=== PATIENT | female | born 1960 | race Two or more races ===

== ENCOUNTER 2024-06-23 13:13 | Outpatient (RCR) | payer MEDICAID, SELFPAY ==
--- NOTE | 2024-06-23 13:34 | PTNOTE_ITS ---
PT OP Initial Eval Patient Information Outpatient Physical Therapy Treatment Date: 06/23/24 Visit Reasons: Pain in Unspecified joint Medical Diagnosis: M25.50 Treatment Dx #1: LBP Treatment Dx #2: B knee pain Start of Care: 06/23/24 Date of Onset: 5 yrs ago Smoking Status Smoking Status: Never smoker Initial Assessment Subjective: Pt is 63 yr old djiboutian speaking female who reports multiple sites of pain, knees, L/S, ankles, neck. She had blood work done in [place] this week and is waiting for results. These pains limits standing tolerance >5 mins, she feels burning in the knees and ankles when she walks. PMH: L4-5 disk bulge, hysterectomy 1995 Imaging: none available Pt goal: to get rid of the pain to improve QOL Objective: ?Trunk ArOM: ? B SB 50% of normal with pain ? Extension: 20% with pain around L4-5, L5-S1 ? Flexion: 18 from floor with LBP ? B rotation: 60% with pain ? R SLR ROM: 45 deg. L SLR: 50 deg with posterior knee neural tension ? TTP: moderate paraspinals L5-S1 B knee ArOM: Flexion: full Extension: full Stephanie's: positive Varus/valgus: positive B knees significant gapping ? Assessment: ? Pt presents with trunk flexion sensitivity and overlying myofascial pain ? and TTP around L4-L5 consistent with lower lumbar disc bulge(s) with radiculopathy. Both knees have significant varus/valgus instability and would benefit from knee braces for support. Pt doesn't tolerate trunk extension due to pain which may limit progress with LBP goals. Pt requires skilled therapy in order to decrease ? pain and improve sitting/standing tolerance and has poor/fair rehab potential. 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 1. Ind with HEP ? 2. Improved sitting/standing tolerance to 20 minutes with <=4/10 LBP ? 3. Decreased lower paraspinal TTP from mod to min 4. Improved HH chore tolerance to at least 20 minutes with <=3/10 LBP and no ?increase in LE ssx Treatment Plan ? 1. Manual therapy ? 2. Therex ? 3. Modalities as indicated, moist heat, ice, estim Frequency and Duration: 1-2x a week for 8 visits Certification Dates: 06/23/24 to 09/23/24 Procedure Charges OP PT Eval Mod Complex 30 minutes: Yes
== END 2024-07-12 23:59 | disposition home or self-care (01) ==
LOC: CPTX 13:13
PROVIDERS: PCP Physician Assistant; Referring Provider Physician Assistant; Visit Provider Physician Assistant
DX: M25.562 Pain in left knee (principal); M25.561 Pain in right knee; M54.50 Low back pain, unspecified; M25.572 Pain in left ankle and joints of left foot; M25.571 Pain in right ankle and joints of right foot; M54.2 Cervicalgia; M25.362 Other instability, left knee; M25.361 Other instability, right knee
CPT/HCPCS: 97162

== ENCOUNTER → 2024-06-23 | Outpatient (CLI) | payer MEDICAID, SELFPAY ==
--- NOTE | 2024-06-23 14:47 | XR_ITS ---
Examination: Bilateral knees 2 views Right lateral knee left lateral knee 2 views Bilateral axial knees single view Technique: Bilateral AP knees standing single view, bilateral PA knees standing lateral view Right lateral knee left lateral knee 2 views Bilateral axial knees single view total 5 views Exam date and time: 2024 1419 hrs. Indications: Bilateral knee pain several months. Findings: Mild to moderate bilateral tricompartment osteoarthritis, most severe medial joint spaces No fracture or dislocation Impression: Mild to moderate bilateral tricompartment osteoarthritis
--- NOTE | 2024-06-23 14:47 | XR_ITS ---
Examination: Lumbar spine 7 views Technique: AP, lateral, standing lateral flexion standing lateral extension OLIVERA, YAKUT, lower lumbar spine total 7 views Exam date and time: June 23 2024 1434 hrs. Low back pain several months. Findings: Lumbar dextroscoliosis 12 degrees No lumbar fracture Diffuse [id number] lumbar disc bulge most prominent at L5-S1 Significantly decreased range of motion between flexion and extension Impression: [id number] lumbar degenerative disc disease, most probably L5-S1
--- NOTE | 2024-06-23 14:47 | XR_ITS ---
EXAMINATION: Cervical spine, 7 views Technique: Cervical spine AP, AP odontoid, lateral, bilateral obliques,, standing lateral flexion standing lateral extension Exam date and time: June 23, 2024 1402 hrs. Indications: Neck pain beginning several months ago. Findings: Satisfactory alignment cervical vertebral bodies No cervical fracture. Moderate degenerative disc disease C5-C6 with moderate bilateral neural foraminal stenosis Adequate range of motion between flexion and extension Impression: Moderate degenerative disc disease C5-C6
--- NOTE | 2024-06-23 14:47 | XR_ITS ---
Examination: Bilateral ankles 3 views Technique one AP lateral right ankle single view, right and left ankles standing 2 views total 3 views Exam date and time: June 23, 2024 1414 hrs. Indications: Bilateral ankle pain beginning several months ago. Findings: Bilateral moderate narrowing tibiotalar joints No fractures or dislocations Impression: Moderate bilateral narrowing tibiotalar joints
== END | disposition home or self-care (01) ==
PROVIDERS: PCP Internal Medicine Rheumatology; Referring Provider Internal Medicine Rheumatology; Visit Provider Internal Medicine Rheumatology
DX: M25.872 Other specified joint disorders, left ankle and foot (principal); M25.871 Other specified joint disorders, right ankle and foot; M51.369 Other intervertebral disc degeneration, lumbar region without mention of lumbar back pain or lower extremity pain; M50.322 Other cervical disc degeneration at C5-C6 level; M17.0 Bilateral primary osteoarthritis of knee
CPT/HCPCS: 72050; 72114; 73564; 73600